=== PATIENT | male | born 1955 | race Caucasian/White ===

== ENCOUNTER 2024-02-24 10:36 | Observation (INO) ==
--- NOTE | 2024-01-27 14:37 | PAT Medication Instructions ---
Medication Instructions Date of Service January 27, 2024 Home Medications amlodipine 5 mg tablet 5 mg PO HS cholecalciferol (vitamin D3) 25 mcg (1,000 unit) tablet (Vitamin D3) 25 mcg PO DAILY gabapentin 300 mg capsule 300 mg PO TID ibuprofen 200 mg tablet 800 mg PO QAM irbesartan 150 mg tablet 150 mg PO HS multivitamin 1 tab PO DAILY tamsulosin 0.4 mg capsule 0.8 mg PO HS ASK your surgeon for instructions ibuprofen 200 mg tablet 800 mg PO QAM DO NOT take the morning of surgery cholecalciferol (vitamin D3) 25 mcg (1,000 unit) tablet (Vitamin D3) 25 mcg PO DAILY multivitamin 1 tab PO DAILY Take morning of surgery With a small sip of water, OTHERWISE NOTHING TO EAT OR DRINK AFTER MIDNIGHT: gabapentin 300 mg capsule 300 mg PO TID Take evening before surgery amlodipine 5 mg tablet 5 mg PO HS gabapentin 300 mg capsule 300 mg PO TID irbesartan 150 mg tablet 150 mg PO HS tamsulosin 0.4 mg capsule 0.8 mg PO HS Other Notes If you have any questions please call us at [phone] or [phone] or or [phone]
--- NOTE | 2024-02-03 12:03 | Anesthesiology Consultation ---
Date of Service February 03, 2024 Assessment & Plan (1) Encounter for pre-operative examination: - awaiting surgeon ordered medical clearance, 02/11/24-[facility]. Chart Review Chart Review: Pending: Refer to Additional Notes / Consult section and Patient seen in Pre Admission Testing Teaching & Discussion Pre-Anesthesia Teaching/Discussion Notes: Instructed NPO after midnight before surgery, except medications with 15 cc of water. Medication instructions provided according to the PAT guidelines. History Surgery Operation Date: 02/24/24 12:25 Proposed Procedures p L3-L5 Decompression and Fusion Spinal Cord Monitoring - Hawk Sol, Height/Weight Height: 5 ft 11 in Weight: 121.6 kg Allergies Allergy/AdvReac Type Severity Reaction Status Date / Time No Known Allergies Allergy Verified 01/27/24 08:05 Medications Home Medications Medication Instructions Recorded Confirmed Last Taken amlodipine 5 mg tablet 5 mg PO HS 01/27/24 01/27/24 Unknown cholecalciferol (vitamin D3) 25 25 mcg PO DAILY 01/27/24 01/27/24 Unknown mcg (1,000 unit) tablet (Vitamin D3) gabapentin 300 mg capsule 300 mg PO TID 01/27/24 01/27/24 Unknown ibuprofen 200 mg tablet 800 mg PO QAM 01/27/24 01/27/24 Unknown irbesartan 150 mg tablet 150 mg PO HS 01/27/24 01/27/24 Unknown multivitamin 1 tab PO DAILY 01/27/24 01/27/24 Unknown tamsulosin 0.4 mg capsule 0.8 mg PO HS 01/27/24 01/27/24 Unknown Past Medical History Medical History (Updated 02/03/24 @ 12:05 by Gala Vicente PA-C) BPH (benign prostatic hyperplasia) Degenerative disc disease History of COVID-19 (~2019) denies hospitalization-symptoms resolved Hypertension controlled, stable per pt Neuropathy feet Prostate cancer non aggressive > no treatment at this time > blood work every 3 months Vertigo infrequent > no meds Patient denies h/o stroke, seizures, heart attack, heart failure, DM, blood clots/DVTs or blood transfusions. Exercise / Class Metabolic Activity II 4-5 Yardwork/Stairs/Walk up hill (denies chest discomfort or shortness of breath with one flight of stairs) Past Family History Family History Brother Diabetes Brother Diabetes Past Surgical History Surgical History History of appendectomy History of cholecystectomy History of colonoscopy History of tonsillectomy Hx of fusion of cervical spine C3-5 > ROM WNL Past Anesthesia History No Hx of Anesthesia Complications and No Family Hx of Anesthesia Complications History of PONV No Hx of PONV and No Hx of Motion Sickness Social History Smoking Status: Former smoker Do You Dip or Chew Tobacco: No Smoking End Date: 45 yrs ago Hx Alcohol Use: Yes Alcohol type: hard liquor alcohol intake frequency: a few times a week Hx Substance Use: No substance use type: does not use Review of Systems Snoring, denies witnessed apneas. Patient denies chest pain, shortness of breath, dyspnea on exertion, reflux, fever, chills, cough, wheezing, or palpitations. Physical Exam Vital Signs Vitals BP 118/76 P 95 TEMP 97.6 SP02 94% on RA RESP 18 Physical Patient resting comfortably in chair in no acute distress, alert and oriented, responding appropriately throughout visit Full cervical extension range of motion without pain TMD 3.5 finger breadths Mallampati Score 2 Dentition: full upper denture; denies chipped or loose teeth, caps/crowns, implants or bridges Lungs: normal respiratory effort. Good air movement, clear throughout to auscultation, no adventitious breath sounds Cardiac: regular rate and rhythm, no murmurs noted Carotid arteries: negative bruit bilat Lab Results Anesthesia Preop Results Results Anesthesia Widget: WBC 4.88 K/ul (4.8-10.8) 02/03/24 Hgb 15.9 g/dl (14.0-18.0) 02/03/24 Hct 44.9 % (42.0-52.0) 02/03/24 Plt 221 K/uL (130-400) 02/03/24 Na 138 mmol/L (136-145) 02/03/24 K 4.3 mmol/L (3.5-5.1) 02/03/24 Cl 105 mmol/L (98-107) 02/03/24 CO2 24 mmol/L (21-32) 02/03/24 BUN 19 mg/dl (6-23) 02/03/24 Creat 0.85 mg/dl (0.6-1.4) 02/03/24 Glucose Level 175 mg/dl (70-99(Fasting)) H 02/03/24 PT 10.2 Seconds (9.0-12.0) 02/03/24 PTT 25 Seconds (21-31) 02/03/24 INR 0.9 (0.9-1.1) 02/03/24 Urine Color Yellow 02/03/24 Urine Appearance Clear (Clear) 02/03/24 Urine pH 7.0 (4.5-7.5) 02/03/24 Urine Specific [place] 1.020 (1.000-1.030) 02/03/24 Urine Protein Negative (Negative) 02/03/24 Urine Glucose (UA) Negative (Negative) 02/03/24 Urine Ketones Negative (Negative) 02/03/24 Urine Blood Trace-intact (Negative) H 02/03/24 Urine Nitrite Negative (Negative) 02/03/24 Urine Bilirubin Negative (Negative) 02/03/24 Urine Urobilinogen Negative (Negative) 02/03/24 Urine Leukocyte Esterase Negative (Negative) 02/03/24 Blood Type A Positive 02/03/24 Antibody Screen NEGATIVE 02/03/24 Testing Electrocardiogram Date: 02/03/24 NSR, rate 83 bpm Chest X-Ray Date: 02/03/24 No acute cardiopulmonary findings.
[2024-02-24] MEDS: LR 60ML/HR IV SCH (10:43)
[2024-02-24] MEDS ORDERED: ePHEDrine sulfate 50 MG/ML AMP IV PRN (11:21)
[2024-02-24] MEDS ORDERED: ATROPINE SULFATE 0.1 MG/ML 10ML SYR IV PRN (11:21)
[2024-02-24] MEDS ORDERED: ONDANSETRON INJ 2 MG/ML 2 ML VIAL IV PRN ×2 (11:21→18:09)
[2024-02-24] MEDS: LR 15ML/HR IV SCH (11:30)
[2024-02-24] MEDS: CeleBREX 200 MG CAP PO SCH (11:33)
[2024-02-24] MEDS: ACETAMINOPHEN 500 MG TAB PO SCH (11:33)
[2024-02-24] MEDS: GABAPENTIN 300 MG CAP PO SCH ×2 (11:33→20:32)
[2024-02-24] MEDS ORDERED: fentaNYL citrate PF 100 MCG/2 ML VIAL ONE ×2 (11:55→14:18)
[2024-02-24] MEDS ORDERED: LIDOCAINE 2% 2 ML VIAL/AMP(20MG/ML) INFIL ONE (11:55)
[2024-02-24] MEDS ORDERED: PROPOFOL IV EMULSION 10 MG/ML 20 ML VIAL IV ONE ×3 (11:55→13:07)
[2024-02-24] MEDS ORDERED: DEXAMETHASONE SOD INJ 4 MG/ML VIAL ONE (11:55)
[2024-02-24] MEDS ORDERED: ROCURONIUM BROMIDE 10 MG/ML 5 ML VIAL IV ONE ×2 (11:55→14:26)
[2024-02-24] MEDS ORDERED: MIDAZOLAM HCL 1 MG/ML 2ML VIAL ONE (11:55)
[2024-02-24] MEDS ORDERED: ONDANSETRON INJ 2 MG/ML 2 ML VIAL ONE (11:55)
--- NOTE | 2024-02-24 12:52 | History & Physical Bridge Note ---
Date of Service February 24, 2024 History & Physical Bridge Note I have examined the patient, reviewed the History & Physical and in the interval since the performance of the History & Physical I have noted the following changes of clinical significance: no changes noted
--- NOTE | 2024-02-24 12:54 | History & Physical Report ---
Date of Service February 24, 2024 Assessment & Plan (1) Lumbosacral spondylosis with radiculopathy: Plan: L3-L5 decompression possible L3-L5 fusion History of Present Illness Chief Complaint: Back and bilateral leg pain Primary Care Provider: DARIN Jett This is a 68-year-old male who presents with chronic persistent back and bilateral leg pain and failing course of nonoperative care is here for surgical invention. Allergies Allergy/AdvReac Type Severity Reaction Status Date / Time lisinopril Allergy Severe throat Verified 02/24/24 11:09 swelling Home Medications Medication Instructions Recorded Confirmed Type amlodipine 5 mg tablet 5 mg PO HS 01/27/24 02/24/24 History cholecalciferol (vitamin D3) 25 25 mcg PO DAILY 01/27/24 02/24/24 History mcg (1,000 unit) tablet (Vitamin D3) gabapentin 300 mg capsule 300 mg PO TID 01/27/24 02/24/24 History ibuprofen 200 mg tablet 800 mg PO QAM 01/27/24 02/24/24 History irbesartan 150 mg tablet 150 mg PO HS 01/27/24 02/24/24 History multivitamin 1 tab PO DAILY 01/27/24 02/24/24 History tamsulosin 0.4 mg capsule 0.8 mg PO HS 01/27/24 02/24/24 History Past Med/Surg History Problem List (Updated 02/24/24 @ 12:53 by Hawk Sol DO) Lumbosacral spondylosis with radiculopathy Encounter for pre-operative examination Medical History (Updated 02/24/24 @ 12:53 by Hawk Sol DO) Diabetes recently diagnosed (A1c 6.6%) PCP planning to initiate treatment after surgery Degenerative disc disease Prostate cancer non aggressive > no treatment at this time > blood work every 3 months Vertigo infrequent > no meds Neuropathy feet BPH (benign prostatic hyperplasia) History of COVID-19 (~2019) denies hospitalization-symptoms resolved Hypertension controlled, stable per pt Surgical History History of colonoscopy History of cholecystectomy History of appendectomy Hx of fusion of cervical spine C3-5 > ROM WNL History of tonsillectomy Family History Brother Diabetes Brother Diabetes Social History Smoking Status: Former smoker Smoking End Date: 45 yrs ago; Second Hand Exposure: No; Do You Dip or Chew Tobacco: No; Tobacco Cessation Education Requested by Patient: No Hx Alcohol Use: Yes Alcohol type: hard liquor Hx Substance Use: No Preferred Language: Afghan Communication Ability: Effective Cable Splicer Helper Required: No Beliefs That Will Affect Care: None Current Living Situation: Spouse Other Information That Helps Us Care for You: No Feels Safe at Home: Yes Safety Concerns: Feels Safe At This Time Assistive Devices: Contacts and Denture - Upper Physical Exam Physical Exam: Patient is alert and oriented heart regular rhythm Lungs clear Results & Data Results & Data Vital Signs (Past 12 Hours) Vital Signs Temp Pulse Resp BP Pulse Ox O2 Del Method 02/24/24 11:11 36.5 C 87 18 160/90 H 95 Room Air
[2024-02-24] MEDS: ceFAZolin 3000MG 3,000 MG/72.5 ML BAG IV SCH (13:18)
[2024-02-24] MEDS ORDERED: PHENYLEPHRINE HCL 10 MG/ML VIAL ONE (13:38)
[2024-02-24] MEDS: ceFAZolin 330 MG/ML 1 GM VIAL ONE (14:01)
[2024-02-24] MEDS: BUPIVACAINE/EPINEPHRINE 0.25% 1:200,000 30 ML VIAL ONE (14:01)
[2024-02-24] MEDS ORDERED: ePHEDrine sulfate 50 MG/5 ML SYR ONE (14:04)
[2024-02-24] MEDS: FLOSEAL HEMOSTATIC MATRIX 10ML TOP ONE (15:23)
[2024-02-24] MEDS ORDERED: SUGAMMADEX SODIUM 200 MG/2 ML VIAL IV ONE (15:27)
--- NOTE | 2024-02-24 15:53 | Operative Report ---
Post Operative Report Pre & Post Diagnosis Operation Date: 02/24/24 12:25 Pre-Op Diagnosis: #1 lumbosacral spondylosis with radiculopathy #2 lumbar neuroforaminal stenosis with radiculopathy Post-Op Diagnosis: Same I identified the patient and participated in the time-out.: Yes Procedure Operation Date: 02/24/24 12:25 Actual Procedures #1 lumbar decompression with bilateral medial facetectomies and foraminotomies L 2 L3, L3-L4 and L4-5. #2 posterior spinal fusion L3-L5. #3 placed posterior instrumentation L3-L5. #4 interbody fusion L3-L4 L4-L5. #5 placement of Spira 14 x 26 mm at L3-L4 and 14 x 26 mm x 2 at L4-L5. #6 placement locally harvested morselized autograft in the posterior lateral gutters. #7 placement infuse collagen sponge combined with Koros bone graft in the posterior lateral gutters and os design interbody space. #8 application of versa wrap over the exposed dura. Surgeon Hakw Sol, DO Vice President Mission Integration None Estimated Blood Loss 300 Findings See Below Patient is 5 foot 11 weighing over 119 kg with a BMI in excess of 36. The patient's body habitus did contribute to significant technical difficulty with positioning exposure and the procedure itself. This had at least 50% increased to the operative time. Specimens None Indications This is a 68-year-old male who presents above-mentioned diagnosis after failing course of nonoperative care is here for surgical invention. Description of Procedure Patient was met with identified informed consent obtained. Patient was then taken to the operative suite underwent intubation placed in a prone position on the Sim table atop the Pasquale frame. All bony promises well-padded I suspected to ensure no external pressure placed upon them. This point the lumbar spine was prepped and draped in normal sterile fashion. Sharp dissection with the assistance of Bovie cautery performed down to and exposing the lamina of L3-L4 bilaterally. From caudal to cephalad fashion and performed a midline laminotomy of L4 and L3. At both levels I had to perform aggressive bilateral medial facetectomies requiring well over 50% of the facet to be removed to provide adequate decompression of the subarticular nerve roots as well as the foramina. I did perform partial laminectomy of L2 with bilateral medial facetectomies as well. This created significant iatrogenic instability subsequently extended the dissection out to the transverse processes of L3 L4-5 bilaterally. Pedicle screws were then placed with the assistance of fluoroscopy bilaterally. By way of transforaminal approach on the left discectomy of L4-L5 was performed endplates grade 2 subcortical white bone and a 14 x 26 mm Spira cage filled with os design bone graft tapped in position. Then proceeded to the right transforaminal region at L4-5. Again discectomy performed endplates guarded to subcortical bleeding bone and a second 14 x 26 mm Spira cage filled with os designed tapped in position. Then proceeded the L3-L4 level. By way of a transforaminal approach on the left complete discectomy was performed endplates corrected to subcortical bleeding bone and a 14 x 26 mm Spira cage filled with os designed tapped in position. The rods were then compressed locked in final position bilaterally. The transverse processes of L3 L4-5 burred to subcortical bleeding bone. Infuse collagen sponge combined with Koros and local autograft placed in the posterior lateral gutters. 15 round MIRNA drain inserted. Versa wrap placed over the exposed dura. The incision was then closed with 1 Vicryl the fascia 2-0 Vicryl subcutaneously and 4 Monocryl for final skin closure. Steri-Strips sterile dressing placed. Patient waken taken to PACU stable condition. Please note spinal cord monitoring was utilized at the procedure no changes noted. Im ordering 20 grams of Triple [place] Collagen Powder ([employer] [id number]) to treat an incision wound that was caused by a spine procedure. The incision is approximately 2 cm(W) x 4 cm(L) into the joint (D) in size and is a full thickness wound. Triple [place] collagen comes in 1 gram packets so 20 packets were ordered. Given the size of the wound, with light to moderate exudate I chose to order a 20 day supply. The patient will be provided instructions for proper application of the collagen wound kit. The patient will be asked to apply the collagen powder daily and then cover it with sterile dressings dispensed. Collagen was selected as I expect the collagen to attract monocytes and fibroblasts, act as a sacrificial substrate for MMPs, and ultimately proved a matrix for tissue and vessel growth. The collagen will act as a primary dressing in this scenario. It is medically necessary for proper healing of these wounds to improve bioavailability and contact with each wound surface, this is also to help prevent infection of wounds and promote healing ultimately leading to a better healing outcome and limit the risk of infection. I attest to the content of the Intraoperative Record and any orders documented therein. Any exceptions are noted below.
[2024-02-24] MEDS: fentaNYL citrate PF 100 MCG/2 ML VIAL IV PRN (16:05)
--- NOTE | 2024-02-24 16:14 | Fluoroscopy Report ---
FL lumbar spine 2-3V CLINICAL HISTORY: L3-L5 DECOMPRESSION AND FUSION COMPARISON STUDY: None. FLUOROSCOPY TIME: 21 seconds. Ka,r: 19.11 mGy FLUOROSCOPIC IMAGES: 2 FINDINGS: Fluoroscopy was provided during L3-L5 decompression and fusion with interbody spacer placem ent. Hardware is intact. There are no unexpected radiopaque foreign bodies. IMPRESSION: Fluoroscopy provided during L3-L5 decompression and fusion. ACT 112: Negative or not required by law. Electronically signed by: Sathish Power M.D. 02/24/2024 4:12 PM
[2024-02-24] MEDS: HYDROmorphone INJ 1 MG/ML SYRINGE IV PRN (16:25)
--- NOTE | 2024-02-24 16:50 | Anesthesiology Progress Note ---
Date of Service February 24, 2024 Anesthesia Post Procedure Vital Signs Vital Signs: Temp Pulse Resp BP Pulse Ox O2 Del Method O2 Flow Rate 02/24/24 16:41 36.6 C 88 10 L 145/85 H 95 Nasal Cannula 2 02/24/24 16:30 76 9 L 142/78 H 98 Nasal Cannula 2 02/24/24 16:20 80 17 128/78 97 Nasal Cannula 2 02/24/24 16:10 75 7 L 139/84 95 Room Air 02/24/24 16:00 80 11 L 129/96 98 Room Air 02/24/24 15:53 36.1 C L 85 16 151/84 H 98 Oxymask 10 02/24/24 11:11 36.5 C 87 18 160/90 H 95 Room Air Pain Intensity Back: Pain Intensity: 5 Transfer of Care Handoff Completed per policy Notes Mental Status: alert / awake / arousable and participated in evaluation Patient Amnestic to Procedure: Yes Nausea / Vomiting: adequately controlled Pain: adequately controlled Airway Patency, RR, SpO2: stable & adequate BP & HR: stable & adequate Hydration State: stable & adequate Anesthetic Complications: no major complications apparent and Pt Satisfied with anesthetic care
[2024-02-24] MEDS ORDERED: bisacodyL 10 MG SUPP PR PRN (18:09)
[2024-02-24] MEDS ORDERED: ACETAMINOPHEN 1,000 MG/100 ML VIAL IV PRN (18:09)
[2024-02-24] MEDS ORDERED: NALOXONE HCL 0.4 MG/1 ML VIAL/CARP IV PRN (18:09)
[2024-02-24] MEDS ORDERED: MAGNESIUM HYDROXIDE SUSP 30 ML UDC PO PRN (18:09)
[2024-02-24] MEDS ORDERED: DO NOT ADMINISTER FLU VACCINE PRN (18:09)
[2024-02-24] MEDS ORDERED: diphenhydrAMINE Capsule 25 MG CAP PO PRN (18:09)
[2024-02-24] MEDS ORDERED: SOD PHOSPHATE/SOD BIPHOSPHATE ENEMA 132 ML BTL PR PRN (18:09)
[2024-02-24] MEDS ORDERED: PROMETHAZINE 12.5 MG/50.5 ML BAG IV PRN (18:09)
[2024-02-24] MEDS ORDERED: FAMOTIDINE 20 MG TAB PO PRN (18:09)
[2024-02-24] MEDS ORDERED: DO NOT ADMINISTER PNEUMOCOCCAL VACCINE PRN (18:09)
[2024-02-24] MEDS ORDERED: LORazepam 2 MG/1 ML VIAL IV PRN (18:09)
[2024-02-24] MEDS ORDERED: ONDANSETRON 4 MG OD TAB PO PRN (18:09)
[2024-02-24] MEDS ORDERED: METOCLOPRAMIDE HCL INJ 5 MG/ML 2 ML VIAL IV PRN (18:09)
[2024-02-24] MEDS ORDERED: ALUMINUM/MAGNESIUM SUSP 30 ML UDC PO PRN (18:09)
[2024-02-24] MEDS ORDERED: HYDROmorphone INJ 1 MG/ML SYRINGE IV PRN (18:09)
[2024-02-24] MEDS ORDERED: hydrOXYzine HCl 25 MG TAB PO PRN (18:09)
[2024-02-24] MEDS ORDERED: oxyCODONE HCL IR 5 MG TAB (IMMEDIATE RELEASE) PO PRN (18:09)
[2024-02-24] MEDS ORDERED: HYDROmorphone INJ 0.5 MG/0.5 ML SYR IV PRN (18:09)
[2024-02-24] MEDS ORDERED: LORazepam 0.5 MG TAB PO PRN (18:09)
--- NOTE | 2024-02-24 18:37 | Consultation ---
Date of Consultation February 24, 2024 Assessment & Plan (1) Status post lumbar surgery: (2) Lumbosacral spondylosis with radiculopathy: Post op day# 0 S/P decompression fusion L3-L5 by Dr Sweta DEGROOT#300ml Pain management per ortho Wound management per ortho PT/OT as appropriate Incentive spirometry Monitor H&H for acute blood loss anemia; pre-op Hgb: 15.9 (3) Hypertension: Continue amlodipine, irbesartan (4) Diabetes mellitus, type II: A1c: 6.6 on pre-op labs per chart review. Prior A1c of 6.1 in 04/2022. Not on medication yet, is to have discussion of newly elevated A1c with PCP post-op Novolog sliding scale per protocol (5) BPH (benign prostatic hyperplasia): (6) Prostate cancer: Current monitoring for prostate cancer Follows with urology, Dr Shelton Continue flomax DVT Prophylaxis SCDs Disposition per primary service Follows with Lalito WEBSTER at [facility] for routine care Pt was seen and care coordinated with Dr Gage. See addendum Thank you for this consultation. We will follow the patient with you during their hospital stay. You can reach a [facility] of the [facility]09 via [email or web address] Supervising Physician Co-Signing Physician Notes Attending Addendum: Case reviewed with the advanced practitioner. I have personally performed a history and physical examination on the patient. I have reviewed the advanced practitioner's documentation on the date of service referenced in note, and I agree with, and take responsibility for the plan of care. please refer to her notes for full details patient seen and examined, records reviewed by myself as well on exam, patient Seen resting in bed, sleeping but easily awakened States he feels fine overall Minimal back pain, no leg weakness or numbness No headache, dizziness, nausea, chest pain, shortness of breath, abdominal pain no other symptoms VS noted and reviewed oriented x3, not in distress, speaks in sentences with no effort nor accessory muscle use normal rate, regular rhythm, no murmurs clear breath sounds bilaterally non distended, soft, nontender no bipedal edema, erythema, warmth no neuro deficits all labs, imaging noted and reviewed ASSESSMENT AND PLAN Status post L3-L5 decompression and fusion today Patient is doing well overall status post surgery Check labs in a.m. Hypertension Continue amlodipine, irbesartan Diabetes type 2 Recent diagnosis, A1c 6.6, scheduled to have a discussion with his PCP regarding management Monitor BSG's while on Decadron History of BPH Continue tamsulosin other diagnoses and plan of care as per advanced practitioner's notes Hiern Gage MD History of Present Illness Requesting Physician: Dr Sol Reason for Consultation: Post op medical management Attending Physician: Hawk Sol, DO History of Present Illness Patient is 68-year-old male with PMH HTN, HLD, prediabetes, BPH, prostate cancer, obesity seen in medical consultation s/p decompression fusion L3-L5 today by Dr. Sol. Post op patient reports doing well and back pain is controlled. Denies LE pain or paresthesias. Has Osborne catheter in place. Denies fever/chills, N/V/D, GOEL, dizziness, CP, SOB, rhinorrhea, abdominal pain, extremity edema, rashes, urinary symptoms. Allergies Allergy/AdvReac Type Severity Reaction Status Date / Time lisinopril Allergy Severe throat Verified 02/24/24 11:09 swelling Home Medications Medication Instructions Recorded Confirmed Type amlodipine 5 mg tablet 5 mg PO HS 01/27/24 02/24/24 History cholecalciferol (vitamin D3) 25 25 mcg PO DAILY 01/27/24 02/24/24 History mcg (1,000 unit) tablet (Vitamin D3) gabapentin 300 mg capsule 300 mg PO TID 01/27/24 02/24/24 History ibuprofen 200 mg tablet 800 mg PO QAM 01/27/24 02/24/24 History irbesartan 150 mg tablet 150 mg PO HS 01/27/24 02/24/24 History multivitamin 1 tab PO DAILY 01/27/24 02/24/24 History tamsulosin 0.4 mg capsule 0.8 mg PO HS 01/27/24 02/24/24 History oxycodone 5 mg tablet 5 mg PO Q6H PRN pain #30 tabs 02/25/24 Rx tramadol 50 mg tablet 50 mg PO Q6H PRN pain, moderate 02/25/24 Rx #30 tabs Patient History Medical History (Updated 03/05/24 @ 00:06 by Background Dashanika) Diabetes mellitus, type II Diabetes recently diagnosed (A1c 6.6%) PCP planning to initiate treatment after surge ry Degenerative disc disease Prostate cancer non aggressive > no treatment at this time > blood work every 3 months Vertigo infrequent > no meds Neuropathy feet BPH (benign prostatic hyperplasia) History of COVID-19 (~2019) denies hospitalization-symptoms resolved Hypertension controlled, stable per pt Surgical History (Updated 03/05/24 @ 00:06 by Background Dashanika) History of colonoscopy History of cholecystectomy History of appendectomy Hx of fusion of cervical spine C3-5 > ROM WNL History of tonsillectomy Family History Brother Diabetes Brother Diabetes Social History Smoking Status: Former smoker Smoking End Date: 45 yrs ago; Second Hand Exposure: No; Do You Dip or Chew Tobacco: No; Tobacco Cessation Education Requested by Patient: No Hx Alcohol Use: Yes Alcohol type: hard liquor Hx Substance Use: No Preferred Language: Cambodian Communication Ability: Effective Cpa Tax Required: No Beliefs That Will Affect Care: None Current Living Situation: Spouse Other Information That Helps Us Care for You: No Feels Safe at Home: Yes Safety Concerns: Feels Safe At This Time Assistive Devices: Walker Review of Systems Review of Systems: All systems reviewed & are unremarkable except as noted in HPI & below Physical Exam Physical Exam: PE Per Dr Gage Results & Data Vital Signs (Past 12 Hours) Vital Signs Temp Pulse Pulse Resp BP Pulse Ox O2 Del Method 02/24/24 17:50 Nasal Cannula 02/24/24 17:50 36.4 C L 89 16 139/75 95 Nasal Cannula 02/24/24 17:30 89 17 128/87 92 Nasal Cannula 02/24/24 17:15 96 H 16 141/73 H 96 Nasal Cannula 02/24/24 17:00 36.6 C 85 14 141/74 H 98 Nasal Cannula 02/24/24 16:50 74 15 136/75 96 Nasal Cannula 02/24/24 16:41 36.6 C 88 10 L 145/85 H 95 Nasal Cannula 02/24/24 16:30 76 9 L 142/78 H 98 Nasal Cannula 02/24/24 16:20 80 17 128/78 97 Nasal Cannula 02/24/24 16:10 75 7 L 139/84 95 Room Air 02/24/24 16:00 80 11 L 129/96 98 Room Air 02/24/24 15:53 36.1 C L 85 16 151/84 H 98 Oxymask 02/24/24 11:11 36.5 C 87 18 160/90 H 95 Room Air O2 Flow Rate 02/24/24 17:50 2 02/24/24 17:50 2 02/24/24 17:30 2 02/24/24 17:15 2 02/24/24 17:00 2 02/24/24 16:50 2 02/24/24 16:41 2 02/24/24 16:30 2 02/24/24 16:20 2 02/24/24 16:10 02/24/24 16:00 02/24/24 15:53 10 02/24/24 11:11 Diagnostic Findings Lumbar Spine X-Ray 02/24/24 12:25 FL lumbar spine 2-3V CLINICAL HISTORY: L3-L5 DECOMPRESSION AND FUSION COMPARISON STUDY: None. FLUOROSCOPY TIME: 21 seconds. Ka,r: 19.11 mGy FLUOROSCOPIC IMAGES: 2 FINDINGS: Fluoroscopy was provided during L3-L5 decompression and fusion with interbody spacer placement. Hardware is intact. There are no unexpected radiopaque foreign bodies. IMPRESSION: Fluoroscopy provided during L3-L5 decompression and fusion. ACT 112: Negative or not required by law. Electronically signed by: Sathish Power M.D. 02/24/2024 4:12 PM
[2024-02-24] MEDS ORDERED: CARBOHYDRATES FOR HYPOGLYCEMIA PO PRN (20:18)
[2024-02-24] MEDS ORDERED: GLUCAGON FOR INJ 1 MG VIAL SQ PRN (20:18)
[2024-02-24] MEDS ORDERED: GLUCOSE 40% GEL 15 GM TUBE PO PRN (20:18)
[2024-02-24] MEDS ORDERED: DEXTROSE 50% 50 ML SYRINGE IV PRN (20:18)
[2024-02-24] MEDS ORDERED: GLUCOSE 10 TAB/TUBE PO PRN (20:18)
[2024-02-24] MEDS: DOCUSATE SODIUM/SENNA 50/8.6MG TAB PO SCH (20:31)
[2024-02-24] MEDS: TAMSULOSIN HCL 0.4 MG CAP PO SCH (20:31)
[2024-02-24] MEDS: amLODIPine BESYLATE 5 MG TAB PO SCH (20:32)
[2024-02-24] MEDS: LOSARTAN POTASSIUM 50 MG TAB PO SCH (20:32)
[2024-02-24] MEDS: INSULIN ASPART PER UNIT CHARGE SC SCH (20:35)
[2024-02-24] MEDS: ceFAZolin 2000MG 2,000 MG/15 ML SYR IV SCH (22:03)
[2024-02-24] MEDS: COUGH DROP (SUGAR FREE) LOZ 24 LOZ/1 BOX BUCCAL ONE (22:07)
[2024-02-25] MEDS: POLYETHYLENE (MIRALAX) 17 GM PACK PO SCH (05:46)
[2024-02-25] MEDS: ACETAMINOPHEN 500 MG TAB PO PRN (07:47)
[2024-02-25] MEDS: MULTIVITAMIN TAB PO SCH (07:48)
[2024-02-25] MEDS: CHOLECALCIFEROL 25 MCG (1000 UNITS) TAB PO SCH (07:48)
[2024-02-25] MEDS: dexAMETHasone 6 MG in SYRINGE 0 ML IV SCH (08:45)
[2024-02-25 08:58] LABS: Basophils # (auto) 0.01 K/uL (0.00-0.20); Basophils % (auto) 0.1 %; Hematocrit (blood only) 39.7 % (42.0-52.0); Hemoglobin 14.1 g/dl (14.0-18.0); Immature Granulocytes # (auto) 0.07 K/uL (0.01-0.20); Immature Granulocytes % (auto) 0.6 %; Lymphocytes % (auto) 6.7 %; Mean Corpuscular Hemoglobin 30.7 pg (25.0-34.0); Mean Corpuscular Hgb Conc 35.5 g/dL (32.0-36.0); Mean Corpuscular Volume 86.3 fL (80.0-100.0); Mean Platelet Volume 10.3 fL (9.4-12.4); Monocytes # (auto) 1.12 K/uL (0.11-0.59); Monocytes % (auto) 9.3 %; Neutrophils # (auto) 10.03 K/uL (1.40-6.50); Neutrophils % (auto) 83.3 %; Platelet Count 237 K/uL (130-400); RDW Coefficient of Variation 13.4 % (11.5-14.5); RDW Standard Deviation 42.5 fL (36.4-46.3); White Blood Count 12.03 K/ul (4.8-10.8)
[2024-02-25 09:07] LABS: BUN Creatinine Ratio 20.5 (10-20); Calcium 8.3 mg/dl (8.6-10.3); Creatinine Clr Calc Pharmacy 119.4 ml/min; Potassium 4.3 mmol/L (3.5-5.1)
--- NOTE | 2024-02-25 09:50 | Orthopedic Progress Note ---
Date of Service February 25, 2024 Assessment & Plan (1) Lumbosacral spondylosis with radiculopathy: Plan: At this time continue physical therapy monitor his MIRNA output over the discharge home the next few days. Admission and Anticipated Discharge Date Admission Date: February 24, 2024 Subjective Back pain is controlled leg symptoms markedly improved. Patient has been up and ambulating. Physical Exam Physical Exam: Patient is currently in the chair at the bedside. He is comfortable. Consented testing. Results & Data Vital Signs (Past 12 Hours) Vital Signs Temp Pulse Resp BP Pulse Ox O2 Del Method 02/25/24 07:36 36.6 C 82 18 129/72 95 Room Air 02/25/24 03:12 36.6 C 86 16 122/66 95 Room Air 02/24/24 23:00 36.4 C L 101 H 16 138/73 93 Room Air Queries Orthopedic Spine Obesity: Yes
--- NOTE | 2024-02-25 15:05 | Hospitalist Progress Note ---
Date of Service February 25, 2024 Assessment & Plan (1) Status post lumbar surgery: (2) Lumbosacral spondylosis with radiculopathy: Plan: S/P Decompression fusion L3-L5 by Dr Sol Postoperative acute blood loss anemia EBL#300ml Pain management per ortho Wound management per ortho PT/OT as appropriate Incentive spirometry Currently no indication for blood transfusion Leukocytosis likely due to Solu-Medrol Monitor (3) Hypertension: Plan: Continue amlodipine, irbesartan (4) Diabetes mellitus, type II: Plan: A1c: 6.6 on pre-op labs per chart review. Prior A1c of 6.1 in 04/2022. Not on medication yet, is to have discussion of newly elevated A1c with PCP post-op Novolog sliding scale per protocol Patient not on home meds Monitor blood glucose levels (5) BPH (benign prostatic hyperplasia): Plan: Continue home medications (6) Prostate cancer: Plan: Current monitoring for prostate cancer Follows with urology, Dr Shelton Continue flomax DVT Prophylaxis SCDs as per primary team Disposition As per primary team Admission and Anticipated Discharge Date Admission Date: February 24, 2024 Subjective Patient is seen and examined at bedside Back pain at surgical site is well-controlled + Flatus, no BM today Denies any chest pain, dyspnea, nausea, vomiting, abdominal pain No other complaints Review of Systems Review of Systems: All systems reviewed & are unremarkable except as noted in Subjective Physical Exam Physical Exam: Physical Exam: Vitals signs as noted above General Appearance:Obese, no apparent distress Head: normocephalic, Atraumatic Eyes: normal inspection, EOMI Neck: supple, Trachea midline Respiratory/Chest: Normal breath sounds, CTA, No accessory muscle use Cardiovascular: S1, S2, No murmur Abdomen/GI:Soft, Non tender, Bowel sounds present Back:Surgical site in dressing Extremities/Musculoskeletal:normal inspection, Trace edema Neurologic/Psych:AAOX3, grossly no focal neurological deficits Skin: normal color, warm Results & Data Results & Data Vital Signs (Past 12 Hours) Vital Signs Temp Pulse Resp BP Pulse Ox O2 Del Method 02/25/24 11:43 36.6 C 92 H 18 150/79 H 95 Room Air 02/25/24 07:36 36.6 C 82 18 129/72 95 Room Air 02/25/24 03:12 36.6 C 86 16 122/66 95 Room Air Laboratory Results Short CBC 02/25/24 Range/Units 07:50 WBC 12.03 H (4.8-10.8) K/ul Hgb 14.1 (14.0-18.0) g/dl Hct 39.7 L (42.0-52.0) % Plt Count 237 (130-400) K/uL BMP 02/25/24 07:50 Sodium 135 L Potassium 4.3 Chloride 101 Carbon Dioxide 24 BUN 16 Creatinine 0.78 Glucose 163 H Calcium 8.3 L
[2024-02-26] MEDS: traMADol HCL 50 MG TABLET PO PRN (07:51)
[2024-02-26 08:07] LABS: Hematocrit (blood only) 40.3 % (42.0-52.0); Hemoglobin 14.1 g/dl (14.0-18.0); Mean Corpuscular Hemoglobin 30.3 pg (25.0-34.0); Mean Corpuscular Volume 86.7 fL (80.0-100.0); Mean Platelet Volume 10.3 fL (9.4-12.4); Platelet Count 233 K/uL (130-400); RDW Coefficient of Variation 13.9 % (11.5-14.5); RDW Standard Deviation 43.6 fL (36.4-46.3); Red Blood Count 4.65 M/uL (4.70-6.10); White Blood Count 11.32 K/ul (4.8-10.8)
[2024-02-26 08:13] LABS: BUN Creatinine Ratio 24.4 (10-20); Calcium 8.5 mg/dl (8.6-10.3); Creatinine Clr Calc Pharmacy 103.5 ml/min; Magnesium 2.2 mg/dl (1.7-2.4); Potassium 4.3 mmol/L (3.5-5.1)
[2024-02-26 08:22] LABS: Estimated Average Glucose 140 mg/dl; Hemoglobin A1C 6.5 % (4.5-5.6)
--- NOTE | 2024-02-26 11:08 | Orthopedic Progress Note ---
Date of Service February 26, 2024 Assessment & Plan (1) Lumbosacral spondylosis with radiculopathy: Plan: At this time we will continue physical therapy monitor his MIRNA output anticipate discharge home tomorrow. Admission and Anticipated Discharge Date Admission Date: February 24, 2024 Subjective Patient's back pain is well-controlled. Leg symptoms improved. Physical Exam Physical Exam: Patient is in the chair at the bedside. Is good strength testing. Results & Data Vital Signs (Past 12 Hours) Vital Signs Temp Pulse Resp BP Pulse Ox O2 Del Method 02/26/24 07:55 36.9 C 86 16 135/78 94 Room Air Queries Orthopedic Spine Obesity: Yes
--- NOTE | 2024-02-26 11:29 | Hospitalist Progress Note ---
Date of Service February 26, 2024 Assessment & Plan (1) Status post lumbar surgery: (2) Lumbosacral spondylosis with radiculopathy: Plan: S/P Decompression fusion L3-L5 follow with postoperative recommendation per primary team. Patient is overall doing well, I was told that he might be able to go home tomorrow. (3) Hypertension: Plan: Blood pressure is controlled, continue amlodipine, losartan 50 mg daily. (4) Diabetes mellitus, type II: Plan: Glycemic control is adequate, managed with sliding scale coverage while here, upon discharge may resume home treatment. (5) BPH (benign prostatic hyperplasia): Plan: Continue Flomax. (6) Prostate cancer: Plan: Patient is medically stable, he has a drain which likely to be removed tomorrow, it seems that patient will be discharged tomorrow, from medical standpoint I agree with the plan of discharge, he is otherwise unremarkable, will sign off, please reach for any question or concerns. Admission and Anticipated Discharge Date Admission Date: February 24, 2024 Subjective Patient is ambulating without any difficulty. Physical Exam Physical Exam: VITALS: Reviewed. WEIGHT/BMI reviewed. GEN: Healthy appearing, well-developed, NAD. NEURO: Ambulating with no limitations. Normal muscle strength and tone. No focal deficits. Results & Data Results & Data Vital Signs (Past 12 Hours) Vital Signs Temp Pulse Resp BP Pulse Ox O2 Del Method 02/26/24 07:55 36.9 C 86 16 135/78 94 Room Air Laboratory Results Laboratory Results - last 24 hr 02/25/24 02/25/24 02/25/24 11:45 16:35 20:48 WBC RBC Hgb Hct MCV MCH MCHC RDW Std Deviation RDW Coeff of Brissa Plt Count MPV Sodium Potassium Chloride Carbon Dioxide Anion Gap BUN Creatinine Est Cr Clr Drug Dosing eGFR BUN/Creatinine Ratio Glucose POC Glucose 143 H 196 H 145 H Estimat Average Glucose Hemoglobin A1c Calcium Magnesium 02/26/24 02/26/24 07:26 07:32 WBC 11.32 H RBC 4.65 L Hgb 14.1 Hct 40.3 L MCV 86.7 MCH 30.3 MCHC 35.0 RDW Std Deviation 43.6 RDW Coeff of Brissa 13.9 Plt Count 233 MPV 10.3 Sodium 139 Potassium 4.3 Chloride 103 Carbon Dioxide 28 Anion Gap 8 BUN 22 Creatinine 0.90 Est Cr Clr Drug Dosing 103.5 eGFR 93.03 BUN/Creatinine Ratio 24.4 H Glucose 157 H POC Glucose 153 H Estimat Average Glucose 140 Hemoglobin A1c 6.5 H Calcium 8.5 L Magnesium 2.2 Medications Administered Current Inpatient Medications Acetaminophen (Acetaminophen 500 Mg Tab) 1,000 mg PO Q8H PRN PRN Reason: MILD Pain Scale 1,2,3 & Pre PT Stop: 03/25/24 18:08 Last Admin: 02/26/24 01:03 Dose: 1,000 mg Al Hydrox/Mg Hydrox/Simethicone (Aluminum/Magnesium Susp 30 Ml Udc) 30 ml PO Q6H PRN PRN Reason: Dyspepsia Stop: 03/25/24 18:08 Amlodipine Besylate (Amlodipine Besylate 5 Mg Tab) 5 mg PO HS [facility] Stop: 03/25/24 20:59 Last Admin: 02/25/24 21:15 Dose: 5 mg Bisacodyl (Bisacodyl 10 Mg Supp) 10 mg VA DAILY PRN PRN Reason: Constipation Stop: 03/25/24 18:08 Dextrose (Dextrose 50% 50 Ml Syringe) 25 - 50 ml IV UD PRN; Protocol PRN Reason: Hypoglycemia Protocol Stop: 03/25/24 20:17 Diphenhydramine HCl (Diphenhydramine Capsule 25 Mg Cap) 25 mg PO Q6H PRN PRN Reason: Allergic Rhinitis/Insomnia Stop: 03/25/24 18:08 Famotidine (Famotidine 20 Mg Tab) 20 mg PO Q12H PRN PRN Reason: Dyspepsia Stop: 03/25/24 18:08 Gabapentin (Gabapentin 300 Mg Cap) 300 mg PO TID [facility]ON Stop: 03/25/24 20:59 Last Admin: 02/26/24 09:15 Dose: 300 mg Glucagon (Glucagon For Inj 1 Mg Vial) 1 mg SQ UD PRN; Protocol PRN Reason: Hypoglycemia Protocol Stop: 03/25/24 20:17 Glucose (Glucose 40% Gel 15 Gm Tube) 15 - 30 gm PO UD PRN; Protocol PRN Reason: Hypoglycemia Protocol Stop: 03/25/24 20:17 Glucose (Glucose 10 Tab/Tube) 4 - 8 tab PO UD PRN; Protocol PRN Reason: Hypoglycemia Protocol Stop: 03/25/24 20:17 Hydromorphone HCl (Hydromorphone Inj 0.5 Mg/0.5 Ml Syr) 0.5 mg IV Q3H PRN PRN Reason: MODERATE Pain (Scale 4,5,6) & Pre PT Stop: 03/09/24 18:08 Hydromorphone HCl (Hydromorphone Inj 1 Mg/Ml Syringe) 1 mg IV Q3H PRN PRN Reason: SEVERE Pain (Scale 7,8,9,10) Stop: 03/09/24 18:08 Hydroxyzine HCl (Hydroxyzine Hcl 25 Mg Tab) 25 mg PO Q8H PRN PRN Reason: Anxiety Stop: 03/25/24 18:08 Promethazine HCl (Phenergan) 12.5 mg in 50.5 mls @ 202 mls/hr IV Q6H PRN PRN Reason: Nausea And Vomiting Stop: 03/25/24 18:08 Dexamethasone 6 mg/ Syringe 1.5 mls @ 1 mls/min IV DAILY K[facility]ON Stop: 02/27/24 09:02 Last Admin: 02/26/24 09:15 Dose: 1 mls/min Influenza Virus Vaccine Quadrival (Do Not Administer Flu Vaccine) 1 each N/A PRN PRN PRN Reason: Notification Stop: 03/25/24 18:08 Insulin Aspart (Insulin Aspart Per Unit Charge) 0 units SC ACHS [facility] Stop: 03/25/24 20:59 Last Admin: 02/26/24 09:23 Dose: 9 units Lorazepam (Lorazepam 0.5 Mg Tab) 0.5 mg PO Q8H PRN PRN Reason: Sedation/Anxiety Stop: 03/25/24 18:08 Lorazepam (Lorazepam 2 Mg/1 Ml Vial) 0.5 mg IV Q8H PRN PRN Reason: Sedation/Anxiety Stop: 03/25/24 18:08 Losartan Potassium (Losartan Potassium 50 Mg Tab) 50 mg PO HS [facility] Stop: 03/25/24 20:59 Last Admin: 02/25/24 21:14 Dose: 50 mg Magnesium Hydroxide (Magnesium Hydroxide Susp 30 Ml Udc) 30 ml PO Q24H PRN PRN Reason: Constipation Stop: 03/25/24 18:08 Metoclopramide HCl (Metoclopramide Hcl Inj 5 Mg/Ml 2 Ml Vial) 10 mg IV Q6H PRN PRN Reason: Nausea &/or Vomiting Stop: 03/25/24 18:08 Miscellaneous (Carbohydrates For Hypoglycemia ) 15 - 30 gm PO UD PRN PRN Reason: Hypoglycemia Protocol Stop: 03/25/24 20:17 Multivitamins (Multivitamin Tab) 1 tab PO DAILY [facility] Stop: 03/26/24 08:59 Last Admin: 02/26/24 09:15 Dose: 1 tab Naloxone HCl (Naloxone Hcl 0.4 Mg/1 Ml Vial/Carp) 0.1 mg IV Q5M PRN PRN Reason: Oversedation/Resp depression Stop: 03/25/24 18:08 Ondansetron HCl (Ondansetron Inj 2 Mg/Ml 2 Ml Vial) 4 mg IV Q6H PRN PRN Reason: Nausea &/or Vomiting Stop: 03/25/24 18:08 Ondansetron HCl (Ondansetron 4 Mg Od Tab) 4 mg PO Q6H PRN PRN Reason: Nausea Stop: 03/25/24 18:08 Oxycodone HCl (Oxycodone Hcl Ir 5 Mg Tab (Immediate Release)) 5 - 10 mg PO Q4H PRN PRN Reason: Pain & Pre PT Stop: 03/09/24 18:08 Pneumococcal Polyvalent Vaccine (Do Not Administer Pneumococcal Vaccine) 1 each N/A PRN PRN PRN Reason: Notification Stop: 03/25/24 18:08 Polyethylene Glycol (Polyethylene (Miralax) 17 Gm Pack) 17 gm PO Q6 [facility] Stop: 03/26/24 05:59 Last Admin: 02/26/24 06:28 Dose: 17 gm Senna/Docusate Sodium (Docusate Sodium/Senna 50/8.6mg Tab) 2 tab PO HS [facility] Stop: 03/25/24 20:59 Last Admin: 02/25/24 21:14 Dose: 2 tab Sodium Biphosphate/Sodium Phosphate (Sod Phosphate/Sod Biphosphate Enema 132 Ml Btl) 132 ml VA ONE PRN PRN Reason: Constipation Stop: 03/25/24 18:08 Tamsulosin HCl (Tamsulosin Hcl 0.4 Mg Cap) 0.8 mg PO HS [facility] Stop: 03/25/24 20:59 Last Admin: 02/25/24 21:14 Dose: 0.8 mg Tramadol HCl (Tramadol Hcl 50 Mg Tablet) 50 - 100 mg PO Q4H PRN PRN Reason: Moderate-Severe pain & Pre PT Stop: 03/25/24 18:08 Last Admin: 02/26/24 07:51 Dose: 50 mg Vitamin D (Cholecalciferol 25 Mcg (1000 Units) Tab) 25 mcg PO DAILY [facility] Stop: 03/26/24 08:59 Last Admin: 02/26/24 09:15 Dose: 25 mcg (3) Hypertension Hypertension type: primary hypertension Qualified Code(s): I10 - Essential (primary) hypertension
[2024-02-26 19:12] VITALS: O2SAT 95
[2024-02-27 07:09] VITALS: BP 138/79; PULSE 83; RESP 16; TEMP 98.6
--- NOTE | 2024-02-27 10:16 | Discharge Summary ---
Date of Service February 27, 2024 Admission HPI Per Admitting Provider This is a 68-year-old male who presents with chronic persistent back and bilateral leg pain and failing course of nonoperative care is here for surgical invention. Principal Diagnosis Lumbar spondylosis with radiculopathy Discharge Data Allergies Allergy/AdvReac Type Severity Reaction Status Date / Time lisinopril Allergy Severe throat Verified 02/24/24 11:09 swelling Consultations 02/24/24 18:09 Consult Hospitalist Routine Procedures Performed Operation Date: 02/24/24 12:25 Actual Procedures p L3-L5 Decompression and Fusion, Spinal Cord Monitoring(Not Applicable) - Hawk Sol DO Ordered Studies 02/24/24 12:25 FL lumbar spine 2-3V Routine Hospital Course (1) Lumbosacral spondylosis with radiculopathy: Patient underwent multilevel lumbar decompression fusion tolerated so stayed the orthopedic for postoperative. Postop he progressed appropriate. Marked tenderness improvement of his back and leg symptoms. MIRNA drain decreasing. Extra strength testing. Pain well-controlled. Subsidy discharged home. Discharge orders instructions from the chart for further review. Total Time Total Time Spent Total Time Spent (In Minutes): 20 minutes Discharge Plan Discharge Items Patient Disposition: Home - Self-Care Reason For Visit: Lumbar Foraminal Stenosis, Lumbar Disc Disease Discharge Diagnosis: lumbar spinal stenosis with radiculopathy Activity: As commented below Non-emergency contact: Primary Care Provider Call non-emergency contact if: you have any medication questions Follow-up/Referrals: Lalito Boland CRNP [Primary Care Provider] - Diet: Regular Addtl Attending Provider Instructions: ACTIVITY RECOMMENDATIONS: SELF CARE INSTRUCTIONS AFTER THORACIC/LUMBAR FUSIONS 1. You may walk to your tolerance. It is good exercise for your legs and back. Expect some back and intermittent leg aches and pains. 2. You may perform "counter-top" level activities (make a sandwich, lawrence with a project, etc.). 3. No bending or lifting of more than 10 pounds or back twisting of any nature (roll like a log when turning in bed). 4. You may ride in a car for 20-30 minutes at a time. No driving until after your first visit with your doctor. 5. Frequent changes of position and restricting sitting to 30 minutes at a time will help limit the amount of back spasms and stiffness you may experience. 6. You may discontinue the use of ambulatory aids (cane, crutches, etc.) once your strength and confidence allow. 7. You may linoleum mechanic the shower and let water strike your incision when you arrive home at least once daily. Do not take a tub bath, sit in a hot tub or go into a swimming pool until after your first recheck in the office. 8. You may resume previous diet. SPECIAL CARE INSTRUCTIONS: VERY IMPORTANT TO READ AND REVIEW A. Your surgical incision has been closed with a cosmetic suture under the skin that will dissolve in about 6 weeks. In 14 days, you can use a pair of clean scissors and cut the suture that is left outside of the skin at the ends of your incision. 1. The small skin tapes can be removed 7 days after surgery if they have not fallen off by that point. 2. You may keep the wound open to air as much as possible to promote healing after post-op day number 5 unless told otherwise by your doctor. 3. If you think the wound looks like it is becoming infected (redness or worsening drainage) and/or you are experiencing fever, chill or worsening back pain and muscle spasms, contact the office so that we may evaluate you as soon as possible. B. Complications are uncommon, but please contact us if you have any signs or symptoms of: 1. wound infection (fever higher than 102.5 degrees F, redness, separation of wound, drainage, or increasing pain from the incision) 2. blood clots in legs (pain, swelling, redness and warmth in legs) 3. urinary tract infection (fever higher than 102.5 degrees F, burning upon urination or increased frequency of urination) 4. nerve problems (inability to walk on your toes or heels, numbness, loss of bowel or bladder control) 5. any other symptoms that concern you C. Please call the office at if you have any concerns or questions about your operation or recovery. D. No smoking! Smoking drastically decreases the chance of a solid fusion. E. Do not take any anti-inflammatory medications (Indocin, Advil, Motrin, Aspirin, Naprosyn, etc.) as these may inhibit the chance of a solid fusion. Tylenol is okay to take for pain. MANAGING PAIN AFTER SPINAL SURGERY 1. Narcotic medication is intended for short-term use and will be provided for surgical pain. Surgical pain usually lasts for a period of 4-6 weeks. Narcotic medication includes Percocet, Vicodin, Darvocet, Tylenol #3 or Lortab. 2. Longer-term pain is more appropriately treated with non-narcotic medication such as Tylenol ES. 3. Muscle spasm is not appropriately treated with narcotics. Muscle relaxers such as Soma, Flexeril or Skelaxin can be used along with Tylenol ES. 4. Remember that we all live with some "aches and pains". This is not unusual or uncommon after an injury or as we get older. a. Back pain is expected and may include muscle spasms for 4 to 6 weeks after surgery. The pain should gradually improve. If the pain worsens for no apparent reason, please contact the office. b. Intermittent leg pain may also be experienced and should not be concerned about unless it worsens for no apparent reason. If so, please contact the office. 5. We will provide appropriate medication within the normal guidelines of their prescribed use. We will also be very cautious and aware of potential abuse and extended duration of patients' medication needs. a. Pain medications are for your comfort and to assist with sleep and rest so that the tissue can heal. They are not provided in order to return to normal activity and should not be used through the day. To do so or worsening pain at night can result from ongoing tissue damage and development of tolerance to the prescribed medicine. 6. Please allow 2-3 days to process refills. Prescriptions will not be mailed but must be picked up at the office. FOLLOW UP VISIT: Keep your scheduled follow-up appointment. Any questions, please call the office at . Pending Studies at Discharge: No Stand-Alone Forms: My [facility] AdRoll, Smoking Cessation Medications and DC Order Prescriptions: New tramadol 50 mg tablet 50 mg PO Q6H PRN (Reason: pain, moderate) Qty: 30 0RF oxycodone 5 mg tablet 5 mg PO Q6H PRN (Reason: pain) Qty: 30 0RF Continued multivitamin Tablet 1 tab PO DAILY amlodipine 5 mg Tablet 5 mg PO HS tamsulosin 0.4 mg Capsule 0.8 mg PO HS gabapentin 300 mg Capsule 300 mg PO TID irbesartan 150 mg Tablet 150 mg PO HS cholecalciferol (vitamin D3) [Vitamin D3] 25 mcg (1,000 unit) Tablet 25 mcg PO DAILY Discontinued ibuprofen 200 mg Tablet 800 mg PO QAM Discharge Orders: Discharge Order (Routine); Ordered 02/27/24 Ordered By: Hawk Daley/Other Patient Handouts: Diabetes: Meal Planning, Type 2 Diabetes Admission Data Admit Date/Time: 02/24/24 15:56 Attending Provider: Hawk Slo Admit Provider: Hawk Sol Primary Care Provider: Lalito Boland Other Providers: Hiren Gage
--- NOTE | 2024-02-28 09:52 | Coding Query ---
To promote full compliance with coding requirements relating to patient care, provider participation is requested in all cases of tree trimmer uncertainty. Please assist us with the question(s) below: Coding Question(s): The diagnosis below was documented in the 02/24 Hospitalist Progress Note, then subsequently fell off all further documentation. Please indicate if it is still a possible diagnosis or ruled out. Physician's Response(s): ACUTE BLOOD LOSS ANEMIA ( ) Diagnosed and POA ( x ) Diagnosed and not POA ( ) Ruled out ( ) Other (please specify) MTDD
== END 2024-02-27 12:45 | disposition home or self-care (01) | DRG 427 ==
LOC: ASU 10:36 → 3N 15:56 → INTOOBSV 15:56 → SUATTDRO 15:56
DX: I10 Essential (primary) hypertension; Z98.1 Arthrodesis status; D62 Acute posthemorrhagic anemia; T49.0X5A Adverse effect of local antifungal, anti-infective and anti-inflammatory drugs, initial encounter; Z87.891 Personal history of nicotine dependence; E11.40 Type 2 diabetes mellitus with diabetic neuropathy, unspecified; Z83.3 Family history of diabetes mellitus; N40.0 Benign prostatic hyperplasia without lower urinary tract symptoms; D72.829 Elevated white blood cell count, unspecified; M47.27 Other spondylosis with radiculopathy, lumbosacral region; E66.9 Obesity, unspecified; Z68.36 Body mass index [BMI] 36.0-36.9, adult; Z79.899 Other long term (current) drug therapy; Z88.8 Allergy status to other drugs, medicaments and biological substances; M48.061 Spinal stenosis, lumbar region without neurogenic claudication